=== PATIENT | female | born 1940 | race Caucasian/White ===

== ENCOUNTER 2023-08-06 11:53 | Emergency (ER) | payer OTHER, SELFPAY ==
[2023-08-06 11:54] VITALS: BP 155/98
[2023-08-06 14:18] VITALS: BP 179/95
[2023-08-06] MEDS: ADACEL 0.5 ML IM (14:36)
[2023-08-06 16:28] VITALS: BP 172/77
--- NOTE | 2023-08-06 16:39 | ED.GENMED ---
History of Present Illness
General
Chief Complaint: Fall
Source: patient
Exam Limitations: none
Time Seen by Provider: 08/06/23 13:31
Nursing documentation reviewed up to this point in time: agreed with
Travel History
Have you had any contact with someone who has COVID-19?: No
Do you have any symptoms of coronavirus? Fever > 100 degrees, chills, cough, shortness of breath, sore throat, loss of taste or smell, muscle aches, or headache?: No
History of Present Illness
History of Present Illness:
83-year-old female with past medical history of hypertension of lipidemia, diabetes presenting to the emergency department today after she tripped over a dog leash hit the left side of her forehead denies loss of consciousness not on blood thinners
has mild ongoing headache also had a mild scrape to her right knee but otherwise walking well and moving her knee normally. Denies additional concerns no numbness or weakness
Past History
Past History
ED Past Medical History: HTN, Hypercholesterolemia, NIDDM and Other (Recurrent UTIs,)
ED Past Surgical History: Gynecological
Social History
Tobacco: Non-smoker
Alcohol: None
Drug: None
Personal:
Living: with family
Employment: Retired
Family History
Family History: Other (Noncontributory)
Review of Systems
Review of Systems
Allergies reviewed?: Yes
All Other Systems: ROS reviewed and negative except as documented in HPI and ROS
Phy Exam
Physical Exam
Physical Exam:
GENERAL: Alert , in no apparent distress
EYE: pupils equal and reactive
NECK: Supple, no significant adenopathy.
ENT: Laceration to left forehead 3 cm in length subcutaneous in depth no foreign body seen clean in appearance surrounded by abrasion o/p clr, mmm.
CARDIAC: Regular rate and rhythm .
LUNGS: Clear breath sounds bilaterally, no acute respiratory distress, no wheezes/rales/rhonchi
ABDOMEN: Soft, without focal tenderness, no r/g, no cvat
NEUROLOGICAL: Alert and oriented, no focal neuro deficits 5-5 upper and lower extremity strength normal sensation were palpated bilaterally normal finger-nose and heel moran no pronator drift
SKIN: Very superficial abrasion to the right knee overlying the patella warm and dry, otherwise skin intact.
MUSCULOSKELETAL: No edema, well perfused.
PSYCH: Normal and appropriate interaction.
Course
Orders/Labs/Results
Orders:
Orders
08/06/23 13:48
CT Head W/o Iv Contrast Urgent
Comment:
Reason For Exam: fall hit head
Tetanus/Diphth/Acelpertussis [Adacel] 0.5 ml IM .ONCE ONE
Vital Signs
Initial and Last Documented VS:
Initial Vital Signs
Temp Pulse Resp BP Pulse Ox
97.8 F 102 20 155/98 96
08/06/23 11:54 08/06/23 11:54 08/06/23 11:54 08/06/23 11:54 08/06/23 11:54
Last Documented Vital Signs
Temp Pulse Resp BP Pulse Ox
97.8 F 90 20 172/77 96
08/06/23 11:54 08/06/23 17:00 08/06/23 11:54 08/06/23 17:00 08/06/23 11:54
Procedures
Laceration Closure
Left Forehead:
Status of Wound: clean
Size of Wound in cm: 3
Description of Wound Edges: surrounded by abrasion
Preparation: cleaned with saline
Anesthesia: 1% Lidocaine with epi
Revision/Debridement: routine- no revision and irrigate-direct pressure
Wound exploration: explored to base- no FB and no tendon involvement
Type of Closure: single layer closure
Skin Closure Material: 5-0 chromic gut
Number of sutures: 6
MDM/Problems Addressed
MDM/Problems Addressed:
83-year-old female presenting to the emergency department today after trip and fall. Did hit her head did not lose consciousness not on blood thinners. Patient does have a laceration surrounded by abrasion was to her left forehead that was cleaned
thoroughly and closed with 6 absorbable sutures. Given proper wound care instructions for this. Otherwise CT scan without emergent findings. Moving all extremities normally no signs of additional significant injury. Was given updated tetanus
shot otherwise stable for discharge return precautions given.
*Critical Care Note
Total Time (30-74mins, 75-104mins- exclusive of procedures): Not Applicable
ED Attending Note
-
Portions of this chart may have been created with voice recognition software.� Occasional wrong word or��sound alike� substitutions may have occurred due to the inherent limitations of voice recognition software.
Discharge Plan
Departure
Patient Disposition: Home (Routine Discharge)
Date of Disposition: 08/06/23
Time of Disposition: 16:39
Patient with high blood pressure during this ER visit?: No
Condition: Good
Covid-19: Not Applicable
Discharge Problem:
Fall, Forehead laceration
Instructions: Laceration Repair With Stitches (DC), Preventing falls in adults
Prescriptions:
No Action
valsartan 80 MG tablet
80 mg PO QPM
simvastatin 20 MG tablet
20 mg PO HS
metformin 1,000 MG tablet
1,000 mg PO DAILY
diltiazem HCl 240 MG capsule,extended release 24hr
240 mg PO DAILY
naproxen 500 MG tablet
500 mg PO BIDPRN PRN (Reason: arthritis)
Patient Comments:
TAKE 1 TABLET TWICE A DAY NEEDED
Referrals:
Boni Azar MD [Family Provider] -
Activity Restrictions/Additional Instructions:
You came to the emergency department today after a fall. You had a normal head CT. Otherwise you have a laceration that was closed with 6 total absorbable sutures. Please keep the area clean and covered with a dry bandage. The sutures should
come out on their own in the next 7 to 10 days. Return to the emergency department for any worsening, new or concerning symptoms.
Interventions
Interventions:
*Risk Screen - Suicide Last Done: 08/06/23 17:00
*General Assessment Last Done: 08/06/23 17:00
*Neglect/Abuse Screening Last Done: 08/06/23 17:00
*ED COVID-19 Vaccine History Last Done: 08/06/23 11:56
*Nursing Disposition Last Done: 08/06/23 17:00
ED-Musculoskeletal Assessment Last Done: 08/06/23 14:18
ED- Neurological Assessment Last Done: 08/06/23 14:18
ED-Skin Assessment Last Done: 08/06/23 14:18
Discharge Date and Time
Discharge Date/Time: 08/06/23 17:01
[2023-08-06 17:00] VITALS: BP 172/77
== END 2023-08-06 17:01 | disposition home or self-care (01) ==
LOC: EMR 11:53
PROVIDERS: EMERGENCY PHYSICIAN Emergency Medicine; FAMILY PHYSICIAN Family Medicine
DX: S01.81XA Laceration without foreign body of other part of head, initial encounter (principal); W01.0XXA Fall on same level from slipping, tripping and stumbling without subsequent striking against object, initial encounter; Z23 Encounter for immunization; I10 Essential (primary) hypertension; E78.00 Pure hypercholesterolemia, unspecified; E11.9 Type 2 diabetes mellitus without complications; Z87.440 Personal history of urinary (tract) infections
CPT/HCPCS: 99283; 12013; 90471; 70450; 90715

== ENCOUNTER 2024-10-22 03:12 | Observation (INO) | payer OTHER, SELFPAY ==
[2024-10-21 21:17] VITALS: BP 153/83
[2024-10-21 21:21] VITALS: BMI 24.0
[2024-10-21 21:38] LABS: % Basophils 0.7 % (0-2); % Eosinophils 0.1 % (0-6); % Lymphocytes 1.4 % (20.5-51.1); % Monocytes 8.1 % (1.7-9.3); % Neutrophils 87.7 % (42.2-75.2); Absolute Basophils 0.1 10^3/uL (0-0.2); Absolute Immature Granulocytes 0.4 10^3/uL (0-0.05); Absolute Lymphocytes 0.3 10^3/uL (1.2-3.4); Absolute Monocytes 1.5 10^3/uL (0.1-0.6); Absolute Neutrophils 16.6 10^3/uL (1.4-6.5); Hematocrit 36.2 % (37.0-47.0); Hemoglobin 12.5 g/dL (12.0-16.0); Mean Corp Hgb Conc. 34.5 g/dL (33.0-37.0); Mean Corpuscular Hgb 30.9 pg (27.0-31.0); Mean Corpuscular Volume 89.4 fL (81.0-99.0); Mean Platelet Volume 9.4 fL (7.4-10.4); Nucleated Red Blood Cells % 0 %; Platelet Count 269 10^3/uL (130-400); Red Blood Cell Count 4.05 10^6/uL (4.20-5.40); Red Cell Dist. Width 12.6 % (11.5-14.5); White Blood Cell Count 18.9 10^3/uL (4.8-10.8)
[2024-10-21 21:51] LABS: ALT (SGPT) 25 U/L (0-35); AST (SGOT) 25 U/L (14-36); Albumin 4.6 g/dl (3.5-5.0); Alkaline Phosphatase 63 U/L (38-126); Blood Urea Nitrogen 18 mg/dl (7-17); Carbon Dioxide 22 mmol/L (22-30); Chloride 98 mmol/L (98-107); Estimated Creatinine Clearance 53 ml/min; Glucose 281 mg/dl (70-99); Lipase 236 U/L (23-300); Potassium 4.7 mmol/L (3.5-5.1); Sodium 129 mmol/L (135-145); Total Bilirubin 0.5 mg/dl (0.2-1.3); Total Protein 7.3 g/dl (6.3-8.2); eGFR > 60.00
[2024-10-21 22:01] VITALS: BP 158/81
[2024-10-21 23:00] VITALS: BP 170/97
--- NOTE | 2024-10-21 23:04 | ED.GENMED ---
History of Present Illness
General
Chief Complaint: Abdominal Symptoms
Source: patient
Exam Limitations: none
Time Seen by Provider: 10/21/24 22:38
History of Present Illness
History of Present Illness:
84-year-old female presents with vomiting. She saw her family doctor and she was started on amoxicillin for what was presumed to be diverticulitis. She was having left lower abdominal pain. She states she took a half a pill of the amoxicillin and
started vomiting. She notes currently she has no abdominal pain. She denies diarrhea. She was given Zofran en route and currently denies any nausea. No urinary symptoms. No other complaints at this time
Past History
Past History
ED Past Medical History: HTN, Hypercholesterolemia, NIDDM and Other
ED Past Surgical History: Gynecological
Social History
Tobacco: Non-smoker
Alcohol: None
Drug: None
Personal:
Living: with family
Employment: Retired
Family History
Family History: Other
Phy Exam
Physical Exam
Physical Exam:
General: Well-appearing female no acute respiratory distress
HEENT: Normocephalic atraumatic
Heart: Tachycardic but regular
Lungs: Clear no wheeze
Abdomen is soft nontender nondistended no guarding or rebound normal bowel sounds
Extremities: No cyanosis or edema
Course
Orders/Labs/Results
Orders:
Orders
10/21/24 21:24
Electrocardiogram (*1) Urgent
Reason for Study: Abdominal Pain
EKG- Treatment ONCE
10/21/24 21:30
Complete Blood Count/With Diff Urgent
Comprehensive Metabolic Panel Urgent
Lipase Urgent
10/21/24 22:54
CT Abd/pelvis W Iv Cont Urgent
Comment:
Reason For Exam: abdominal pain, vomiting
0.9% Sodium Chloride 1000 ml [Nss] 1,000 ml IV BOLUS
10/21/24 23:22
Urinalysis Reflex To Culture Urgent
Date Specimen was Collected: 10/21/24
Time Specimen was Collected: 23:19
Urine Microscopic Reflex Cult Urgent
Urine Culture Urgent
DANIEL Source: U
Specimen Description:
Date Specimen was Collected: 10/21/24
Time Specimen was Collected: 23:19
Abnormal Lab Results
10/21/24 10/21/24
21:30 23:22
WBC 18.9 H 10^3/uL
(4.8-10.8)
RBC 4.05 L 10^6/uL
(4.20-5.40)
Hct 36.2 L %
(37.0-47.0)
Abs Immat Gran (auto) 0.4 H 10^3/uL
(0-0.05)
Absolute Neuts (auto) 16.6 H 10^3/uL
(1.4-6.5)
Absolute Lymphs (auto) 0.3 L 10^3/uL
(1.2-3.4)
Absolute Monos (auto) 1.5 H 10^3/uL
(0.1-0.6)
Immature Gran % 2.0 H %
(0-0.5)
Neutrophils % 87.7 H %
(42.2-75.2)
Lymphocytes % 1.4 L %
(20.5-51.1)
Sodium 129 L mmol/L
(135-145)
BUN 18 H mg/dl
(7-17)
Glucose 281 H mg/dl
(70-99)
Ur Occult Blood Reflex 2+ A
(Negative)
Leukocyte Esterase Rfl 2+ A
(Negative)
Urine Glucose 4+ A
(Negative)
Urine Albumin (Reflex) 2+ A
(Neg - Trace)
10/21/24 21:30
10/21/24 21:30
Vital Signs
Initial and Last Documented VS:
Initial Vital Signs
Temp Pulse Resp BP Pulse Ox
98.2 F 108 18 153/83 93
10/21/24 21:17 10/21/24 21:17 10/21/24 21:17 10/21/24 21:17 10/21/24 21:17
Last Documented Vital Signs
Temp Pulse Resp BP Pulse Ox
98.2 F 107 24 166/90 93
10/21/24 21:17 10/22/24 00:00 10/22/24 00:00 10/22/24 00:00 10/21/24 23:45
MDM/Problems Addressed
Differential Diagnosis Includes:
Vomiting. This was following after taking a pill of amoxicillin. She was having abdominal pain which is since resolved. Question bowel obstruction versus viral illness versus diverticulitis versus electrolyte abnormality
Check labs. CT pending of the abdomen. Fluids ordered.
*Critical Care Note
Total Time (30-74mins, 75-104mins- exclusive of procedures): Not Applicable
Update Note
Update Note:
CT demonstrates a large hiatal hernia with gastric wall thickening to suggest gastritis. Radiologist could not rule out volvulus. Clinically patient's abdomen is benign. There was no further vomiting after dose of Zofran. Do not suspect bowel
obstruction. Discussed with general surgery. No immediate need for surgery at this time but will admit to hospital for supportive care. Discussed this with patient and the daughter in the room
ED Attending Note
-
Portions of this chart may have been created with voice recognition software.� Occasional wrong word or��sound alike� substitutions may have occurred due to the inherent limitations of voice recognition software.
Discharge Plan
Departure
Patient Disposition: Admit
Date of Disposition: 10/22/24
Time of Disposition: 00:37
Presentation/result/management discussed w/ accepting MD/DO: Hospitalist
Discharge Problem:
Vomiting
Prescriptions:
No Action
valsartan 80 MG tablet
80 mg PO QPM
simvastatin 20 MG tablet
20 mg PO HS
metformin 1,000 MG tablet
1,000 mg PO DAILY
diltiazem HCl 240 MG capsule,extended release 24hr
240 mg PO DAILY
naproxen 500 MG tablet
500 mg PO BIDPRN PRN (Reason: arthritis)
Patient Comments:
TAKE 1 TABLET TWICE A DAY NEEDED
Referrals:
Boni Azar MD [Family Provider] -
Interventions
Interventions:
*Risk Screen - Suicide Last Done: 10/21/24 21:22
*General Assessment Last Done: 10/21/24 21:22
*Neglect/Abuse Screening Last Done: 10/21/24 21:22
*ED- Fall Risk Assessment Last Done: 10/21/24 21:21
*ED COVID-19 Vaccine History Last Done: 10/21/24 21:21
Discharge Date and Time
Print Language: DANISH
[2024-10-21 23:30] VITALS: BP 171/86
[2024-10-21] MEDS: NSS 1000 IV (23:31)
[2024-10-22] VITALS (9 sets, daily range): BP systolic 137–185; BP diastolic 73–97; PULSE 83; O2SAT 94
[2024-10-22 00:08] LABS: Urine Albumin 2+ (Neg - Trace); Urine Bilirubin Negative (Negative); Urine Character Slightly Cloudy (Clear); Urine Color Yellow; Urine Glucose 4+ (Negative); Urine Ketone Negative (Negative); Urine Leukocyte 2+ (Negative); Urine Nitrite Negative (Negative); Urine Occult Blood 2+ (Negative); Urine Specific Gravity 1.015 (<1.030); Urine Urobilinogen Negative (Neg - 1+)
[2024-10-22 00:42] LABS: Urine Squamous Cell >30 /LPF (Few)
[2024-10-22 00:43] LABS: Urine Red Blood Cell 0-2 /HPF (0-2); Urine White Cell 50-60 /HPF (0-5)
[2024-10-22 00:47] LABS: Urine Bacteria Many (Negative)
--- NOTE | 2024-10-22 02:59 | HPS.HSE ---
Family Physician
-
Family Physician: Boni Azar
Chief Complaint
-
N/V
History of Present Illness
Patient is an 84y F with PMH significant for hypertension, DM-II who presents to ED complaining of nausea. Patient notes that she had some LLQ abdominal pain for the past several days. She was seen by her PCP who prescribed amoxicillin for
suspected diverticulitis. Patient states that she took 1/2 tab of this this evening and immediately developed nausea and retching. She states that she had intractable retching - but had no actual emesis. She had discomfort in the abdomen /
epigastric region due to continued retching. She presented to the ED for further evaluation.
After a dose of Zofran in the ED, her nausea / retching resolved. She is currently resting comfortably and has no complaints.
Patient also states that she was seen by Ortho and had a steroid injection in the L shoulder earlier today.
Medical History
Past Medical History
Past Medical History: Reports Other
Additional Past Medical History:
Hypertension
DM-II
Recurrent UTIs
Diverticular Disease
Past Surgical History: Reports Other
Additional Past Surgical History:
NEIL
Rectocele Repair
Bladder Sling
Right TKA
Left Thumb Surgery
Right Shoulder Surgery
Social History
Tobacco: Non-smoker
Alcohol: None
Drug: None
Family History
Family History: Not pertinent
Allergies / Home Medications
Allergies reflects when Allergies were last updated in [facility].
Home Medications with original date entered in [facility]
Allergy/Medication List:
Allergies
Allergy/AdvReac Type Severity Reaction Status Date / Time
ciprofloxacin [From Cipro] Allergy Nausea / Verified 10/21/24 21:17
Vomiting
levofloxacin [From Levaquin] Allergy Nausea / Verified 10/21/24 21:17
Vomiting
sulfamethoxazole Allergy Hives Verified 10/21/24 21:17
[From Bactrim]
trimethoprim [From Bactrim] Allergy Hives Verified 10/21/24 21:17
Home Medications
metformin 1,000 mg tablet 1,000 mg PO DAILY 06/19/17
simvastatin 20 mg tablet 20 mg PO HS 06/19/17
valsartan 80 mg tablet 80 mg PO QPM 06/19/17
diltiazem HCl 240 mg capsule,extended release 24 hr 240 mg PO DAILY 07/06/17
Review of Systems
-
History Source: Patient
A 12 point ROS was completed and negative except as noted: Yes
Constitutional: Denies Fever or Chills
Respiratory: Denies Cough or Trouble Breathing
Cardiac: Denies Chest Pain or Palpitations
Abdomen/GI: Reports Abdominal Pain and Nausea; Denies Vomiting, Diarrhea or Anorexia
: Denies Dysuria, Frequency or Flank Pain
Musculoskeletal: Denies Joint Pain or Edema
Neurological: Denies Dizzy or Headache
Physical Exam
Vital Signs
Vital Signs
Temp Pulse Resp BP Pulse Ox
98.2 F 102 17 158/79 92
10/21/24 21:17 10/22/24 02:45 10/22/24 02:45 10/22/24 02:00 10/22/24 02:15
Physical Exam
General: Other (84y F in no distress.)
HEENT: Moist mucous membranes, PERRLA and Other (Very [place].)
Respiratory: Clear; No Wheezes, Rales or Rhonchi
Cardiac: S1/S2 and Tachycardia; No Murmur
GI: Soft, Non Tender, Non Distended and Normal Bowel Sounds
Musculoskeletal: No Clubbing, No Cyanosis and Other (non pitting edema.)
Neuro: AO x 3
Laboratory Results
-
10/21/24 21:30
10/21/24 21:30
Laboratory Results
Total Bilirubin 0.5 mg/dl (0.2-1.3) 10/21/24 21:30
AST 25 U/L (14-36) 10/21/24 21:30
ALT 25 U/L (0-35) 10/21/24 21:30
Alkaline Phosphatase 63 U/L (38-126) 10/21/24 21:30
Lipase 236 U/L (23-300) 10/21/24 21:30
Impression/Plan
-
A/P: Patient is an 84y F with PMH significant for HTN and DM-II who presents to ED complaining of nausea and retching.
Gastritis
Hiatal Hernia
- Observe overnight for further evaluation and treatment.
- Symptoms resolved promptly after single dose of Zofran.
- Has known hiatal hernia but not on any chronic acid suppression regimen.
- Begin daily PPI.
- Follow for any new / recurrent symptoms.
- Current episode seems to have been triggered by PO abx - hold further doses.
- CT scan done in the ED suggested possible gastric volvulus - however, symptoms improved rapidly.
- Consider Surgery evaluation if symptoms recur.
Tachycardia
- Patient in sinus tachycardia throughout her time in the ED.
- This persisted despite improvement in nausea / symptoms and IVF administration.
- ? related to corticosteroid injection. ? other etiology.
- Note that only prior EKG done here also showed mild sinus tachycardia.
- Monitor on tele overnight.
- Continue usual home regimen including diltiazem.
- Monitor for any new symptoms to explain sinus tach.
Benign Hypertension
- Continue home med regimen.
DM-II
- Hold metformin acutely s/p IV contrast study.
DVT Prophylaxis: SCDs
Code Status: Full
[2024-10-22 03:47] LABS: Lactic Acid 1.1 mmol/L (0.7-2.0)
[2024-10-22 04:19] LABS: TSH Reflex To Free T4 0.23 uIU/ml (0.47-4.68)
[2024-10-22] MEDS: NSS 1000 IV (04:24)
[2024-10-22 04:48] LABS: Free T4 1.09 ng/dl (0.78-2.19)
[2024-10-22 06:14] LABS: Hematocrit 32.6 % (37.0-47.0); Hemoglobin 11.3 g/dL (12.0-16.0); Mean Corp Hgb Conc. 34.7 g/dL (33.0-37.0); Mean Corpuscular Volume 89.3 fL (81.0-99.0); Mean Platelet Volume 9.6 fL (7.4-10.4); Platelet Count 222 10^3/uL (130-400); Red Blood Cell Count 3.65 10^6/uL (4.20-5.40); Red Cell Dist. Width 12.6 % (11.5-14.5); White Blood Cell Count 11.2 10^3/uL (4.8-10.8)
[2024-10-22 06:29] LABS: Blood Urea Nitrogen 13 mg/dl (7-17); Calcium 9.3 mg/dl (8.4-10.2); Carbon Dioxide 21 mmol/L (22-30); Chloride 104 mmol/L (98-107); Estimated Creatinine Clearance 53 ml/min; Glucose 202 mg/dl (70-99); Potassium 4.5 mmol/L (3.5-5.1); Sodium 131 mmol/L (135-145); eGFR > 60.00
[2024-10-22 08:11] LABS: Glucose - Point of Care 181 mg/dl (70-99)
[2024-10-22] MEDS: CARDIZEM CD 240 MG PO (08:19)
[2024-10-22] MEDS: PROTONIX IV 40 MG IV (08:20)
[2024-10-22] MEDS: NSS (PRESERVATIVE FREE) 10 ML IV (08:20)
[2024-10-22] MEDS: NOVOLOG FLEXPEN-LOW RESISTANCE 1 UNITS SC ×2 (09:01→13:20)
--- NOTE | 2024-10-22 11:14 | W.PN.UPDATE ---
Update Note
Progress Note Update
seen and examined independent of overnight physician
Denies any further nausea/vomiting. Denies any abd pain and distention. Denies any bloating. Denies any dysphagia or odontophagia.
States chronic history of hiatal hernia. Does not want any intervention/surgery. only in absolute severe case if needed. Patient states she has discussed with her family about her wishes. Daughter at bedside agreed.
Tolerates diet at home w/o any difficulty. Avoids meat.
General: Resting in bed comfortably. States feeling fine.
HEENT: Moist mucous membranes, and Other (Very [place].)
Respiratory: Clear; No Wheezes, Rales or Rhonchi
Cardiac: S1/S2 and Tachycardia; No Murmur
GI: Soft, Non Tender, Non Distended and Normal Bowel Sounds
Musculoskeletal: No Clubbing, No Cyanosis and Other (non pitting edema.)
Neuro: AO x 3
A/P: Patient is an 84y F with PMH significant for HTN and DM-II who presents to ED complaining of nausea and retching.
Gastritis
Chronic Hiatal Hernia
- Symptoms resolved
- Has known hiatal hernia but not on any chronic acid suppression regimen.
- Begin daily PPI.
- Follow for any new / recurrent symptoms.
- Current episode seems to have been triggered by PO abx - hold further doses.
- CT scan done in the ED suggested possible gastric volvulus - however, symptoms improved rapidly.
- Consider Surgery evaluation if symptoms recur.
Tachycardia
- Patient in sinus tachycardia throughout her time in the ED.
- This persisted despite improvement in nausea / symptoms and IVF administration.
- Note that only prior EKG done here also showed mild sinus tachycardia.
- Monitor on tele overnight.
- Continue usual home regimen including diltiazem.
- Monitor for any new symptoms to explain sinus tach. Reviewing her external medical summary report seems history of tachycardia.
Benign Hypertension
- Continue home med regimen.
DM-II
- Hold metformin acutely s/p IV contrast study.
Mild hyponatremia secondary to dehydration.
Improved.
Subclinical hypothyroidism
Repeat TFTs in 4 to 5 weeks.
Amatory dysfunction
PT eval
DVT Prophylaxis: SCDs
Code Status: Full
Discussed with patient daughter at bedside in detail.
[2024-10-22 12:04] LABS: Glycohemoglobin (HgbA1c) 6.9 % (4.0-5.6)
--- NOTE | 2024-10-22 13:00 | CM ---
Alert awake oriented pt who lives independent living at [facility]. She uses walker and cane.She uses a walker and cane. Offered VN she said she will set up herself.Spoke with dgt Silvia she said therapy has already been set up for her with [facility] . Silvia [place] [facility] [place] [facility] letter given explained signed on chart.
No VN or SNF history
Pharmacy [facility]
PCP DR Azar
PLAN Home with no needs
[2024-10-22 13:10] LABS: Glucose - Point of Care 182 mg/dl (70-99)
--- NOTE | 2024-10-22 14:16 | W.DCSUMMARY ---
Discharge Summary
Discharge Data
Date of Admission: 10/22/24
Date of Discharge: 10/22/24
-
Pending Results: No
Hospital Course
84-year-old female past medical history of chronic hiatal hernia, hypertension, diabetes mellitus, UTI, diverticular disease was presenting from home with nausea and vomiting. Patient stated she was given antibiotics by primary doctor and after
taking 1 tablet of penicillin she developed nausea and vomiting. In the ER patient received Zofran leading to resolution of nausea vomiting. Patient underwent CT abdomen pelvis with IV contrast which showed large right-sided hernia. Per patient
she has chronic history of hiatal hernia and is being followed and managed by primary doctor. Patient was also started on IV PPI which was transitioned to p.o. on discharge. Denies any further nausea/vomiting. Denies any abdomen pain and
distention. Denies any bloating. Denies any dysphagia or odynophagia or weight loss. States chronic history of hiatal hernia. Does not want any intervention/surgery. only in absolute severe case if needed. Patient states she has discussed with
her family about her wishes. Daughter at bedside agreed. Patient tolerated lunch without any difficulty. Patient ambulated with physical therapy and will continue with outpatient therapy. Recommended to make appointment with gastroenterology and
General Surgery If She Wishes to pursue Treatment and Management for Hiatal Hernia.
Discharge Plan
-
Patient Disposition: Home (Routine Discharge)
Discharge Diagnosis/Procedures: Nausea and vomiting
Condition: Fair
Diet: As tolerated
Activity: As tolerated
Driving Restrictions: As prior to admission
Referrals:
Boni Azar MD [Family Provider] -
Timo Moralez MD [Active] - None (If you want make appointment for hiatal hernia management)
Jacqueline Adler DO [Active] - None (If you want make appointment for hiatal hernia management)
Prescriptions:
New
pantoprazole [Protonix] 40 mg tablet,delayed release (DR/EC)
40 mg PO DAILY Qty: 30 0RF
Continued
valsartan 80 MG tablet
80 mg PO QPM
simvastatin 20 MG tablet
20 mg PO HS
diltiazem HCl 240 MG capsule,extended release 24hr
240 mg PO DAILY
acetaminophen [Tylenol] 325 mg Tablet
325 mg PO HS
cyanocobalamin (vitamin B-12) 1,000 mcg Tablet
1,000 mcg PO DAILY
therapeutic multivitamin Tablet
1 tab PO DAILY
calcium carbonate 500 mg calcium (1,250 mg) Tablet
500 mg PO DAILY
ferrous sulfate 325 mg (65 mg iron) Tablet
325 mg PO DAILY
docusate sodium [Colace] 100 mg Capsule
100 mg PO DAILYPRN PRN (Reason: constipation)
cholecalciferol (vitamin D3) [Vitamin D3] 25 mcg (1,000 unit) Tablet
25 mcg PO DAILY
Probiotic Pearls Women's 1 billion cell Capsule,Delayed Release(Dr/Ec)
1 cap PO DAILY
Held
metformin 1,000 MG tablet
1,000 mg PO DAILY
Hold Instructions: Resume on 10/24/24.
Discharge Date and Time
Print Language: FIJIAN
[2024-10-22] MEDS: NSS IV (14:28)
== END 2024-10-22 16:30 | disposition home or self-care (01) ==
LOC: 1 ACUTE 03:12
PROVIDERS: Physician Assistant; ADMITTING PHYSICIAN Hospitalist; ATTENDING PHYSICIAN Hospitalist; EMERGENCY PHYSICIAN Student in an Organized Health Care Education/Training Program; FAMILY PHYSICIAN Family Medicine
DX: K29.70 Gastritis, unspecified, without bleeding (principal); R11.10 Vomiting, unspecified; K44.9 Diaphragmatic hernia without obstruction or gangrene; I10 Essential (primary) hypertension; E11.9 Type 2 diabetes mellitus without complications; E86.0 Dehydration; E87.1 Hypo-osmolality and hyponatremia; E03.8 Other specified hypothyroidism; R00.0 Tachycardia, unspecified
CPT/HCPCS: 74177; 80048; 80053; 81003; 81015; 82962; 83036; 83605; 83690; 84439; 84443; 85025; 85027; 87086; 93005; 97162; 99285; G0378; Q9967